=== PATIENT | female | born 1985 | race Caucasian/White ===

== ENCOUNTER 2017-09-28 22:00 | Inpatient (IN) | payer BC ==
[2017-09-29] MEDS ORDERED: Bupivacaine HCl 0.5%/Epinephrine 1:200,000/PF 30 ml Vial ONE (10:00)
--- NOTE | 2017-09-29 16:28 | PDOC.LDHP ---
Labor and Delivery H&P Chief complaint: scheduled induction HPI: PT is a 32yo G1 @ 39 weeks scheduled for medically indicated IOL with suspected XXY of baby. Pt was scheduled for IOL 09/28 but has had a short delay in admission due to a number of high acuity patients on the L and D unit. The patients plan of care has been reviewed with the [facility] team tonight as well. Current gestational age (weeks): 39 Due date: 10/04/17 Dating criteria: last menstrual period, first trimester ultrasound Grav: 1 Para: 0 OB History Details: known XXY via NIPT and confirmed w amnio Current complications: other (XXY) Abnormal US findings: No (low lying placenta resolved) Past Medical History: anxiety Current medications: pre-srinivasan vitamins, iron, other (zoloft 50mg a day) Previous surgical history: none Allergies/Adverse Reactions: Allergies Allergy/AdvReac Type Severity Reaction Status Date / Time No Known Allergies Allergy Verified 05/27/16 15:53 Social history: none - Physical Exam Vital signs reviewed and normal: yes - Vaginal Exam cm dilated: 1 (per Dr. Guillen last week) Effacement: 50% - OB Labs Blood type: O RH: positive Antibody Screen: negative HIV: negative RPR: negative HEPSAg: negative 1 hour GCT: negative GBS: negative Rubella: immune - Assessment L&D Assessment: medically indicated induction - Plan Plan: admit to L&D, cervical ripening, informed consent obtained, anesthesia consult for pain management -: A/P: 32yo G1 @ 39+ weeks sched for IOL per [facility] recs for XXY. Plan for cervical ripening with [facility] back up coverage if [facility] team not available after hours, discussed w OB[facility]. Will reexamine cervix on admission and cytotec for ripening if appropriate.
[2017-09-29] MEDS ORDERED: NS w/ Oxytocin 10 units 500 ML IV SCH ×3 (20:28→21:45)
[2017-09-29] MEDS ORDERED: Butorphanol Tartrate 1 MG/ML VIAL SLOW IVP PRN (20:28)
[2017-09-29] MEDS ORDERED: Ondansetron HCl/PF 4 MG/2 ML Vial IVP PRN (20:28)
[2017-09-29] MEDS ORDERED: Promethazine HCl 25 MG/ML VIAL IM PRN (20:28)
[2017-09-29] MEDS ORDERED: Ibuprofen 800 MG TAB PO PRN (20:28)
[2017-09-29] MEDS ORDERED: Acetaminophen 500 MG TAB PO PRN (20:28)
[2017-09-29] MEDS ORDERED: Lidocaine 1% (PF) 30 ML VIAL SC PRN (20:28)
[2017-09-29] MEDS ORDERED: Acetaminophen/Codeine 30-300mg Tablet PO PRN ×2 (20:28)
[2017-09-29] MEDS ORDERED: Docusate 100 MG CAP PO PRN (20:28)
--- NOTE | 2017-09-29 21:36 | PDOC.EVN ---
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 Plan discussed with her. I performed cervical exam and discussed cervical membrane stripping. CX started at 1-2cm..after 1 minute of stripping membranes, CX 3/90/0/cephalic/BOWI. Gynecoid pelvis. EFW about 7# OK for pitocin augmentation for XXY karyotype at 39 weeks +
[2017-09-29 21:45] VITALS: BMI 26.4
[2017-09-29] MEDS: Lactated Ringer's 1,000 ML IV SCH (21:52)
[2017-09-29 22:08] LABS: Hemoglobin 9.7 g/dL (12.0-16.0); Mean Corpuscular Hemoglobin 26.8 pg (27.0-31.0); Mean Corpuscular Volume 81.2 fl (81.0-99.0); Mean Platelet Volume 9.1 fL (7.4-10.4); Platelet Count 255 thou/uL (130-400); RBC Distribution Width 13.8 % (11.5-14.5); White Blood Cell (WBC) Count 11.2 thou/uL (4.8-10.8)
[2017-09-30 00:09] LABS: Hep B Surf Ag Non-Reactive S/CO (NonReactive)
[2017-09-30] MEDS: Lactated Ringer's 1,000 ML IV SCH ×2 (05:54→08:12)
[2017-09-30] MEDS ORDERED: DISCONTINUE ALL PREVIOUS NARCOTICS FS SCH (06:00)
--- NOTE | 2017-09-30 06:04 | PDOC.LDPN ---
Labor & Delivery Progress Note - Subjective Subjective: painful contractions, loss of fluid - Objective Vital signs reviewed and normal: yes General: NAD Uterine fundus: non tender SVE: 4/90/0 by me 15 minutes ago Dilation: 4 Effacement: 90% Station: 0 FHT: category 1 [place] contractions every: every 2-3, but low amplitute. IUPC in use IUPC placed: yes - Assessment (1) Meconium in amniotic fluid Code(s): P96.83 - MECONIUM STAINING Current Visit: Yes Status: Acute Plan: other (Assessment: XXY karyotype, on pitocin. SROM at 0500 with meconium. Cervix by me was 4/90/0/IUPC in. Mec noted. The internal cervical ring has a tight band...I suspect this is from the LEEP she had in 2007 or so ( possible scar tissue). I attempyted to "break the band" by cervical stripping but patient did not tolerate. We discussed epidural as she is very uncomfortable with the pelvic pressure- epidural ordered.)
--- NOTE | 2017-09-30 06:43 | PDOC.EVN ---
Event Note - Event Note Event Note: I was resent for labor epidural placement.
[2017-09-30] MEDS: Bupivacaine 0.5% 20 ML, fentaNYL Citrate/PF 400 MCG in Sodium Chloride 0.9% 72 ML EPIDURAL SCH ×2 (06:47→14:15)
[2017-09-30] MEDS ORDERED: Ondansetron HCl/PF 4 MG/2 ML Vial IVP PRN ×2 (06:55→18:22)
[2017-09-30] MEDS ORDERED: diphenhydrAMINE 50 MG/ML VIAL IVP PRN (06:55)
[2017-09-30] MEDS ORDERED: Eucerin (Mineral Oil/Petrolatum,White) 30 gm Jar TOP PRN (06:55)
[2017-09-30] MEDS ORDERED: Acetaminophen 325 MG TAB PO PRN (06:55)
[2017-09-30] MEDS ORDERED: Promethazine HCl 25 MG/ML VIAL IM PRN (06:55)
[2017-09-30] MEDS ORDERED: Lactated Ringer's 500 ML IV PRN (06:55)
[2017-09-30] MEDS ORDERED: ePHEDrine/0.9% NaCl/PF SYRINGE 50 mg/10 ml SLOW IVP PRN (06:55)
[2017-09-30] MEDS ORDERED: Naloxone HCl 0.4 mg/ml Vial IVP PRN ×2 (06:55)
[2017-09-30] MEDS ORDERED: Communication Order-Pharmacy FS SCH (07:00)
[2017-09-30] MEDS ORDERED: Fentanyl 4mcg/Marcaine 0.1% Cassette 100 ML EPIDURAL SCH (07:00)
--- NOTE | 2017-09-30 08:23 | PDOC.LDPN ---
Labor & Delivery Progress Note - Subjective Subjective: comfortable - Objective Vital signs reviewed and normal: yes General: resting FHT: category 1 [place] contractions every: 2 - Assessment (1) XXY identified by routine karyotyping Code(s): R89.8 - [facility] ABNORMAL FINDINGS IN SPECIMENS FROM OTH ORG/TISS Current Visit: Yes Status: Acute (2) 39 weeks gestation of Code(s): Z3A.39 - 39 WEEKS GESTATION OF Current Visit: Yes Status : Acute Plan: continue plan of care -: A/P: 32yo G1 @ 39.2 here for IOL for XXY per MFM recommendations, pt with favorable cervix on admit last night. IUPC placed early AM after AROM. FHT reassuring. Continue plan of care.
[2017-09-30] MEDS: NS / Oxytocin 40 units/1000ml 1,000 ML IV PRN ×2 (15:15→17:03)
[2017-09-30] MEDS ORDERED: Methylergonovine 0.2 MG/ML VIAL ONE (15:17)
--- NOTE | 2017-09-30 15:29 | PDOC.OPDEL ---
OB Operative/Delivery Note Delivery Dr/Surgeon: Letitia Assist: n/a Pre-Delivery Diagnosis: medically indicated induction (, fetus XXY) Procedure/Post Delivery Dx: spontaneous vaginal delivery (, PPH) Weeks gestation: 39 Anesthesia: epidural - Findings A Sex: male - 1 min: 7 - 5 min: 5 (10 min 9) - Additional Findings/Plan Placenta delivered: manual removal (prolonged 3rd stage, no retained products on BME, placenta to path) Repaired Obstetrical Laceration: 1st degree (repaired with 2-0 vicryl) Estimated blood loss: 600 Compilations/Other Findings: after manual extraction, no retained POC on BME, brisk bleeding, pitocin infusing, grove placed, methergine 0.2mg IM given, uterine tone improved and lochia appropriate. Post delivery plan: routine recovery
[2017-09-30] MEDS ORDERED: Milk Of Magnesia 30 ML UDCUP PO PRN (18:22)
[2017-09-30] MEDS ORDERED: Preparation H Ointment 28 GM TUBE PR PRN (18:22)
[2017-09-30] MEDS ORDERED: Bisacodyl 10 MG SUPP PR PRN (18:22)
[2017-09-30] MEDS ORDERED: HYDROcodone/Acetaminophen 5/325 mg Tablet PO PRN ×2 (18:22)
[2017-09-30] MEDS ORDERED: diphenhydrAMINE 25 MG CAP PO PRN (18:22)
[2017-09-30] MEDS ORDERED: Lanolin Ointment 7 GM TUBE TOP PRN (18:22)
[2017-09-30] MEDS ORDERED: NS / Oxytocin 40 units/1000ml 1,000 ML IV SCH (18:22)
[2017-09-30] MEDS ORDERED: Benzocaine/Menthol 20-0.5% 60 ML CAN TOP PRN (18:22)
[2017-09-30 19:00] LABS: Hemoglobin 8.9 g/dL (12.0-16.0)
[2017-09-30] MEDS: Ibuprofen 800 MG TAB PO SCH (19:42)
[2017-09-30] MEDS: Docusate Calcium (SURFAK) 240 MG CAP PO SCH (21:46)
[2017-09-30] MEDS: Ferrous Sulfate 325 MG TAB PO SCH (22:36)
[2017-10-01] MEDS: Ibuprofen 800 MG TAB PO SCH ×2 (03:28→13:04)
--- NOTE | 2017-10-01 07:28 | PRG ---
DATE OF SERVICE: 10/01/2017 PRIMARY OB: Dr. Guillen. SUBJECTIVE: The patient is a 32-year-old female who is day 1, status post a term spontane ous vaginal delivery. This morning, she reports she is tolerating p.o., voiding on her own, having d ecreased lochia and good pain control. PHYSICAL EXAMINATION: VITAL SIGNS: Blood pressure is 140/78, temperature 98.0, pulse of 84, respiratory rate of 16. GENERAL: She appears to be in no acute distress. She is alert and oriented, cooperative and pleasan t to interact with. HEENT: Head is normocephalic, atraumatic. ABDOMEN: Soft. Fundus is firm. EXTREMITIES: Nontender, nonedematous. LABORATORY DATA: Postdelivery hemoglobin is 8.9, hematocrit 26.9. ASSESSMENT AND PLAN: The patient is day 1, status post a term spontaneous vaginal deliver y. Anticipate discharge tomorrow.
[2017-10-01] MEDS ORDERED: Adacel (T-DAP) 0.5 ML VIAL IM ONE (09:00)
[2017-10-01] MEDS: Docusate Calcium (SURFAK) 240 MG CAP PO SCH ×2 (10:08→21:23)
[2017-10-01] MEDS: Ferrous Sulfate 325 MG TAB PO SCH ×2 (10:08→18:29)
[2017-10-01] MEDS: Prenatal Vitamin 1 TAB PO SCH (10:11)
[2017-10-02] MEDS: Ibuprofen 800 MG TAB PO SCH ×4 (01:43→18:53)
--- NOTE | 2017-10-02 06:47 | PDOC.PP ---
Post Progress Note Post Day #: PPD#2 Subjective: Tearful. Struggling to breastfeed. PO intake tolerated: yes Ambulation: yes Vital Signs (12 hours) Temp Pulse Resp BP 10/02/17 00:00 98.7 F 10/01/17 22:00 100.0 F H 96 16 116/67 10/01/17 20:00 99.1 F 117 H 16 146/87 H Weight Weight 78.925 kg - Physical Examination General: NAD Respiratory: non-labored breathing Neurological: no gross focal deficits Result Diagrams: 09/30/17 18:53 Additional Labs: Post Labs Blood Type O POSITIVE 09/29/17 21:57 Hep Bs Antigen Non-Reactive S/CO (NonReactive) 09/29/17 21:57 - Assessment/Plan Baby slow to feed. Pt. requesting late discharge
[2017-10-02 07:48] VITALS: BP 119/70; TEMP 98.5
[2017-10-02] MEDS: Ferrous Sulfate 325 MG TAB PO SCH ×2 (14:59→17:42)
[2017-10-02] MEDS: Docusate Calcium (SURFAK) 240 MG CAP PO SCH (15:00)
[2017-10-02] MEDS: Prenatal Vitamin 1 TAB PO SCH (15:00)
--- NOTE | 2017-10-03 05:18 | DIS ---
PRIMARY OB: Toi Guillen M.D. DATE OF ADMISSION: 09/29/2017 DATE OF DISCHARGE: 10/02/2017 ADMITTING DIAGNOSES: 1. Elective induction of labor at 39 weeks. 2. Suspected Klinefelter's of the baby. DISCHARGE DIAGNOSES: 1. Elective induction of labor at 39 weeks. 2. Suspected Klinefelter's of the baby. PROCEDURE: Term spontaneous vaginal delivery with hemorrhage. HOSPITAL COURSE: The patient is a 32-year-old G1 now P1 female who presented to Labor and Delivery f or a medically indicated induction of labor at 39 weeks. Her course was uncomplicated at time of [facility], where she had a term spontaneous vaginal delivery. Her intrapartum course was complicated wit h a hemorrhage with total estimated blood loss of 600 mL. Post-delivery hemoglobin is 8.9, hematocri t 26.9 down from 9.7, hematocrit 29.3. Her course has been uncomplicated. Today on postp artum day #2, the patient is ready to go home, feeding concerns of the baby have been resolved. The patient reports she is tolerating p.o., voiding on her own, having decreased lochia and good pain con trol. PHYSICAL EXAMINATION: VITAL SIGNS: At time of discharge; blood pressure 119/70, temperature 98.5, pulse of 75, respiratory rate of 20. GENERAL: She appears to be in no acute distress. She is alert and oriented, cooperative and pleasan t to interact with. HEENT: Head is normocephalic and atraumatic. DISCHARGE INSTRUCTIONS: The patient is being discharged to home on iron, vitamins and over- the-counter Tylenol as needed. She has instructions to follow up with Dr. Guillen in 6 weeks. She al so was given instructions to seek medical attention sooner if she experiences fever, increasing pain or bleeding, foul discharge or other concerns.
== END 2017-10-02 20:16 | disposition home or self-care (01) | DRG 774 ==
LOC: L&D 09-29 20:10 → 3SW 09-30 18:00
PROVIDERS: ADMIT Obstetrics & Gynecology; ATTEND Obstetrics & Gynecology
PROC: 3E033VJ Introduction of Other Hormone into Peripheral Vein, Percutaneous Approach (ICD-10-PCS; 2017-09-29)
PROC: 10E0XZZ Delivery of Products of Conception, External Approach (ICD-10-PCS; principal; 2017-09-30)
PROC: 0HQ9XZZ Repair Perineum Skin, External Approach (ICD-10-PCS; 2017-09-30)
DX: O67.8 Other intrapartum hemorrhage (principal); Z3A.39 39 weeks gestation of pregnancy; Z37.0 Single live birth; O70.0 First degree perineal laceration during delivery; O77.0 Labor and delivery complicated by meconium in amniotic fluid; R89.8 Other abnormal findings in specimens from other organs, systems and tissues; O75.89 Other specified complications of labor and delivery
CPT/HCPCS: 36415; 51702; 85014; 85018; 85027; 86850; 86900; 86901; 87340; 88307; J0595; J0670; J2001; J2210; J2405; J3010; J3490; J7050

== ENCOUNTER 2020-10-24 09:57 | Outpatient (CLI) | payer OTHER | END 2020-10-24 09:58 | disposition home or self-care (01) | LOC: CTENTCT 09:57 | PROVIDERS: ATTEND Otolaryngology Plastic Surgery within the Head & Neck | DX: J32.9 Chronic sinusitis, unspecified (principal); J34.2 Deviated nasal septum | CPT/HCPCS: 70486 ==

== ENCOUNTER 2022-06-05 12:14 | Outpatient (CLI) | payer OTHER | END 2022-06-05 12:15 | disposition home or self-care (01) | LOC: BICRAD 12:14 | PROVIDERS: ATTEND Nurse Practitioner Family | DX: R09.89 Other specified symptoms and signs involving the circulatory and respiratory systems (principal) | CPT/HCPCS: 71046 ==